=== PATIENT | female | born 1980 | race Caucasian/White ===

== ENCOUNTER 2022-03-14 02:14 | Emergency (ER) | payer SELFPAY ==
[2022-03-14 02:32] VITALS: BP 138/84; PULSE 94; RESP 20; TEMP 99.5; BMI 55.0
[2022-03-14] MEDS ORDERED: ACETAMINOPHEN 500 MG TABLET (FP) PO ONE (03:12)
[2022-03-14] MEDS ORDERED: ACETAMINOPHEN 500 MG TABLET (FP) ONE (03:22)
== END 2022-03-14 05:50 | disposition home or self-care (01) ==
LOC: JER 02:14
DX: R51.9 Headache, unspecified (principal); R07.9 Chest pain, unspecified
CPT/HCPCS: 0241U-QW; 99281-25